=== PATIENT | male | born 1965 | race Caucasian/White ===

== ENCOUNTER 2019-11-27 10:22 | Outpatient (RCR) | payer BC | END 2019-12-01 | LOC: OT 10:22 | PROVIDERS: ATTEND Specialist | DX: M77.12 Lateral epicondylitis, left elbow (principal) ==

== ENCOUNTER 2019-12-11 10:56 | Outpatient (RCR) | payer BC | END 2019-12-31 | LOC: OT 10:56 | PROVIDERS: ATTEND Specialist | DX: M77.12 Lateral epicondylitis, left elbow (principal) ==